=== PATIENT | male | born 1955 | race American Indian/Alaskan Native ===

== ENCOUNTER 2017-01-31 03:15 | Emergency (ER) | payer BC ==
[~2017-01-31] VITALS: Ht 182.9 cm; Wt 99.8 kg
[~2017-01-31 03:15] MED LIST: ASPI-630 PO; EMPA10TA PO; ENAL20TA PO; EZET1TAB35 PO; FISH1CAP PO; GLYB1TAB15 PO; INSU100I17 SQ; INSU100I27 SQ; LIRA0.6P2 SQ; LISI2.5T PO; METO25TA4 PO; MULT-245 PO; OMEG-113 PO
[2017-01-31 04:14] LABS: BASO % 0 % (0-3); EOS % 2 % (0-3); HEMATOCRIT 44.7 % (39.0-53.0); HEMOGLOBIN 15.2 g/dL (13.0-17.5); LYMPH % 24 % (24-48); MEAN CORPUSCULAR HEMOGLOBIN 29 pg (25-35); MEAN CORPUSCULAR HGB CONC 34 g/dL (31-37); MEAN CORPUSCULAR VOLUME 87 fL (79-100); MONO % 10 % (0-9); NEUT % 64 % (31-73); PLATELET COUNT 162 x10^3/uL (140-400); RED BLOOD COUNT 5.17 x10^6/uL (4.30-5.70); RED CELL DISTRIBUTION WIDTH 13.9 % (11.5-14.5); WHITE BLOOD COUNT 8.6 x10^3/uL (4.0-11.0)
[2017-01-31 04:26] LABS: CALCIUM 9.2 mg/dL (8.5-10.1); GFR 75.5; POTASSIUM 3.7 mmol/L (3.5-5.1)
[2017-01-31 04:32] LABS: ALBUMIN 3.8 g/dL (3.4-5.0); DIRECT BILIRUBIN 0.2 mg/dL (0.0-0.2); TOTAL BILIRUBIN 0.7 mg/dL (0.2-1.0); TOTAL PROTEIN 6.8 g/dL (6.4-8.2)
[2017-01-31] MEDS ORDERED: HYDR-2758 PO (04:47)
--- NOTE | 2017-01-31 04:48 | PHYS DOC ---
Past Medical History Past Medical History: Diabetes-Type II, High Cholesterol, Hypertension, [place] Past Surgical History: Coronary Bypass Surgery Additional Past Surgical Histo: CARDIAC STENT Alcohol Use: None Drug Use: None Adult General Chief Complaint Chief Complaint: SHOULDER INJURY HPI HPI 61-year-old [facility] With left Shoulder pain. He denies any recent injury. The pain is a sharp shooting pain worse with movement of shoulder.It is moderate none radiating and without leaving factors.He denies chest pain or shortness of breath.He does have a history of coronary or disease.He denies the pain being similar to previous MIs. Review of systemsIs negative forChest painShortness of breath, Abdominal pain, Nausea, vomiting, or diaphoresis.All review of systems is negative. Emergency Department course:61-year-old male presenting to the emergency department With left shoulder pain. Vital signs unremarkable.On examination of the patient, He is stretching his left trapezius muscle And it appears to be in a mild amount of pain. He reports this improves his pain.His skin is dry to touch. EKG obtained and not suggestive of acute coronary syndrome.Chest x-ray and left shoulder plane films are unremarkable.Troponin and other blood work is unremarkable.Patient's pain has been present for greater than six hours. Clinical presentation suggestive of musculoskeletal pain. The patient was given Muscle relaxants And oral pain medication which improved his symptoms.He was subsequently discharged home.Face to face discharge instructions given.Patient is comfortable with the plan. Review of Systems Review of Systems see above Current Medications Current Medications Current Medications Medications (Trade) Dose Ordered Sig/Italo Start Time Stop Time Status Last Admin Dose Admin Cyclobenzaprine HCl (Flexeril) 10 mg 1X ONCE 01/31/17 05:00 01/31/17 05:01 DC 01/31/17 04:55 10 MG Hydromorphone HCl (Dilaudid) 0.5 mg 1X ONCE 01/31/17 05:00 01/31/17 05:01 DC 01/31/17 04:55 0.5 MG Allergies Allergies Allergies Coded Allergies Type Severity Reaction Last Updated Verified Penicillins Allergy Intermediate 10/11/15 Yes dapagliflozin Allergy Intermediate 10/11/15 Yes Physical Exam Physical Exam Constitutional: Well developed, well nourished, no acute distress, non-toxic appearance. [] HENT: Normocephalic, atraumatic, bilateral external ears normal, oropharynx moist, no oral exudates, nose normal. [] Eyes: PERRLA, EOMI, conjunctiva normal, no discharge. [] Neck: Normal range of motion, no tenderness, supple, no stridor. [] Cardiovascular:Heart rate regular rhythm, no murmur [] Lungs & Thorax: Bilateral breath sounds clear to auscultation [] Abdomen: Bowel sounds normal, soft, no tenderness, no masses, no pulsatile masses. [] Skin: Warm, dry, no erythema, no rash. [] Back: No tenderness, no CVA tenderness. [] Extremities: No tenderness, no cyanosis, no clubbing, ROM intact, no edema. [] pain with passive ROM of the left shoulder and ttp of the left trapezium and rotator cuff muscles. L hand nvi. Neurologic: Alert and oriented X 3, normal motor function, normal sensory function, no focal deficits noted. [] Psychologic: Affect normal, judgement normal, mood normal. [] Current Patient Data Vital Signs Vital Signs Date Time Temp Pulse Resp B/P (MAP) Pulse Ox O2 Delivery O2 Flow Rate FiO2 01/31/17 05:00 68 13 123/71 (88) 96 Room Air 01/31/17 03:15 98.4 98.4 Lab Values Laboratory Tests Test 01/31/17 04:00 White Blood Count 8.6 x10^3/uL (4.0-11.0) Red Blood Count 5.17 x10^6/uL (4.30-5.70) Hemoglobin 15.2 g/dL (13.0-17.5) Hematocrit 44.7 % (39.0-53.0) Mean Corpuscular Volume 87 fL (79-100) Mean Corpuscular Hemoglobin 29 pg (25-35) Mean Corpuscular Hemoglobin Concent 34 g/dL (31-37) Red Cell Distribution Width 13.9 % (11.5-14.5) Platelet Count 162 x10^3/uL (140-400) Neutrophils (%) (Auto) 64 % (31-73) Lymphocytes (%) (Auto) 24 % (24-48) Monocytes (%) (Auto) 10 % (0-9) H Eosinophils (%) (Auto) 2 % (0-3) Basophils (%) (Auto) 0 % (0-3) Neutrophils # (Auto) 5.5 x10^3uL (1.8-7.7) Lymphocytes # (Auto) 2.0 x10^3/uL (1.0-4.8) Monocytes # (Auto) 0.9 x10^3/uL (0.0-1.1) Eosinophils # (Auto) 0.2 x10^3/uL (0.0-0.7) Basophils # (Auto) 0.0 x10^3/uL (0.0-0.2) Sodium Level 141 mmol/L (136-145) Potassium Level 3.7 mmol/L (3.5-5.1) Chloride Level 107 mmol/L (98-107) Carbon Dioxide Level 26 mmol/L (21-32) Anion Gap 8 (6-14) Blood Urea Nitrogen 23 mg/dL (8-26) Creatinine 1.0 mg/dL (0.7-1.3) Estimated GFR (Cockcroft-Gault) 75.5 Glucose Level 202 mg/dL (70-99) H Calcium Level 9.2 mg/dL (8.5-10.1) Total Bilirubin 0.7 mg/dL (0.2-1.0) Direct Bilirubin 0.2 mg/dL (0.0-0.2) Aspartate Amino Transferase (AST) 23 U/L (15-37) Alanine Aminotransferase (ALT) 37 U/L (16-63) Alkaline Phosphatase 64 U/L (46-116) Troponin I Quantitative < 0.017 ng/mL (0.000-0.055) Total Protein 6.8 g/dL (6.4-8.2) Albumin 3.8 g/dL (3.4-5.0) Lipase 176 U/L (73-393) Laboratory Tests 01/31/17 04:00 Laboratory Tests 01/31/17 04:00 EKG EKG [] Radiology/Procedures Radiology/Procedures [] Course & Med Decision Making Course & Med Decision Making Pertinent Labs and Imaging studies reviewed. (See chart for details) [] Dragon Disclaimer Dragon Disclaimer This electronic medical record was generated, in whole or in part, using a voice recognition dictation system. Departure Departure Impression: Primary Impression: Left shoulder pain Disposition: 01 HOME, SELF-CARE Condition: STABLE Referrals: MADAN NULL MD (PCP) Patient Instructions: Shoulder Pain, [id number] Additional Instructions: Thank you for allowing us to participate in your care today. Followup with your primary care physician in 3 days if your symptoms do not improve. Call your Primary Doctor tomorrow and inform them of your visit today. If you do not have a primary care provider you can ask for a list of our primary care providers. Return to the emergency department you have any new or concerning findings. This should be evaluated by the primary care physician and any necessary consulting services for continued management within a few days after discharge. Return to emergency room if you have any new or concerning symptoms including but not limited to fever, chills, nausea, vomiting, intractable pain, any new rashes, chest pain, shortness of air, uncontrolled bleeding, difficulty breathing, and/or vision loss. You may have been prescribed medication that can change in your level of thinking and ability to operate machinery. These medications include hydrocodone and Ativan. Also, Benadryl has been known to do this as well. Be sure to check with your pharmacist and ask if the medications you've prescribed can affect your level of consciousness. I recommend not operating heavy machinery or driving while on medication such as these. Scripts Cyclobenzaprine Hcl (CYCLOBENZAPRINE HCL) 5 Mg Tablet 1 TAB PO TID PRN Y for PAIN, #20 TAB Prov: SIRENA CHENG MD 01/31/17 Hydrocodone Bit/Acetaminophen (HYDROCODONE-APAP 5-325 ) 1 Each Tablet 1 TAB PO PRN Q8HRS Y for sev, #8 TAB 0 Refills Prov: SIRENA CHENG MD 01/31/17 SIRENA CHENG MD Jan 31, 2017 04:47
[2017-01-31] MEDS ORDERED: CYCL5TAB PO (04:50)
[2017-01-31 05:00] VITALS: BP 123/71
[2017-01-31] MEDS ORDERED: CYCLOBENZAPRINE 10 MG TABLET. PO ONE (05:00)
[2017-01-31] MEDS ORDERED: HYDROmorphone 2 MG/ML VIAL IV ONE (05:00)
--- NOTE | 2017-01-31 06:44 | EKG ---
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
--- NOTE | 2017-01-31 08:18 | RAD ---
Left shoulder, 3 views, 01/31/2017: History: Left shoulder pain No acute fracture or dislocation is identified. There is spurring along the glenoid rim and at the AC joint. There is a moderate periarticular calcification along the superior aspect of the humeral head most likely related to the rotator cuff tendons. IMPRESSION: 1. Degenerative change including calcific tendinitis involving the rotator cuff. 2. No acute bony abnormality is detected.
--- NOTE | 2017-01-31 08:20 | RAD ---
DOYLE chest, 01/31/2017: History: Chest pain Comparison is made to a study from 10/19/2015. There has been a previous median sternotomy. The heart size and pulmonary vascularity are normal. There is a calcified granuloma in the left base. No acute infiltrate is seen. There is no evidence of pleural fluid. Moderate spurring is present in the spine. IMPRESSION: No acute cardiopulmonary abnormality is detected.
== END 2017-01-31 05:20 | disposition home or self-care (01) ==
LOC: ER 03:15
DX: M25.512 Pain in left shoulder (principal); E11.9 Type 2 diabetes mellitus without complications; E78.00 Pure hypercholesterolemia, unspecified; I10 Essential (primary) hypertension; I25.2 Old myocardial infarction; Z95.5 Presence of coronary angioplasty implant and graft; Z88.0 Allergy status to penicillin; Z88.8 Allergy status to other drugs, medicaments and biological substances
CPT/HCPCS: 36415; 71010; 73030; 80048; 80076; 83690; 84484; 85025; 93005; 96374; 99285; J1170

== ENCOUNTER 2018-06-05 05:48 | Emergency (ER) | payer BC ==
[~2018-06-05] VITALS: Ht 182.9 cm; Wt 104.3 kg
[~2018-06-05 05:48] MED LIST changes: +CYCL5TAB PO; +GLYB-102 PO; -GLYB1TAB15 PO; +HYDR-2761 PO
--- NOTE | 2018-06-05 06:22 | PHYS DOC ---
Past Medical History Past Medical History: Diabetes-Type II, High Cholesterol, Hypertension, [place] Past Surgical History: Coronary Bypass Surgery Additional Past Surgical Histo: CARDIAC STENT Alcohol Use: None Drug Use: None Adult General Chief Complaint Chief Complaint: SKIN RASH/ABSCESS HPI HPI Patient is a 62 year old male presented to the ER today for evaluation of painful lesions in his buttock area for several days. Patient denied any fever , no nausea or vomiting. Patient denied any abdominal pain. Review of Systems Review of Systems Constitutional: Denies fever or chills [] Eyes: Denies change in visual acuity, redness, or eye pain [] HENT: Denies nasal congestion or sore throat [] Respiratory: Denies cough or shortness of breath [] Cardiovascular: No additional information not addressed in HPI [] GI: Denies abdominal pain, nausea, vomiting, bloody stools or diarrhea [] : Denies dysuria or hematuria [] Musculoskeletal: Denies back pain or joint pain [] Integument:Positive for painful skin lesions in buttock area. Neurologic: Denies headache, focal weakness or sensory changes [] Endocrine: Denies polyuria or polydipsia [] All other systems were reviewed and found to be within normal limits, except as documented in this note. Current Medications Current Medications Current Medications Medications (Trade) Dose Ordered Sig/Italo Start Time Stop Time Status Last Admin Dose Admin Lidocaine HCl (Lidocaine 1% 20ml Vial) 20 ml 1X ONCE 06/05/18 07:00 06/05/18 07:01 DC 06/05/18 07:15 20 ML Morphine Sulfate (Morphine Sulfate) 4 mg 1X ONCE 06/05/18 07:00 06/05/18 07:01 DC 06/05/18 07:12 4 MG Vancomycin HCl (Vanco Per Pharmacy) 1 each PRN DAILY PRN 06/05/18 06:30 Vancomycin HCl 2 gm/Sodium Chloride 500 ml @ 250 mls/hr 1X ONCE 06/05/18 07:30 06/05/18 09:29 06/05/18 07:15 250 MLS/HR Allergies Allergies Allergies Coded Allergies Type Severity Reaction Last Updated Verified Penicillins Allergy Intermediate 10/11/15 Yes dapagliflozin Allergy Intermediate 10/11/15 Yes Physical Exam Physical Exam Constitutional: Well developed, well nourished, no acute distress, non-toxic appearance. [] HENT: Normocephalic, atraumatic, bilateral external ears normal, oropharynx moist, no oral exudates, nose normal. [] Eyes: PERRLA, EOMI, conjunctiva normal, no discharge. [] Neck: Normal range of motion, no tenderness, supple, no stridor. [] Cardiovascular:Heart rate regular rhythm, no murmur [] Lungs & Thorax: Bilateral breath sounds clear to auscultation [] Abdomen: Bowel sounds normal, soft, no tenderness, no masses, no pulsatile masses. [] Skin: There are two large tender indurated lesions on each side buttock consistent with Pilonidal abscess. Back: No tenderness, no CVA tenderness. [] Extremities: No tenderness, no cyanosis, no clubbing, ROM intact, no edema. [] Neurologic: Alert and oriented X 3, normal motor function, normal sensory function, no focal deficits noted. [] Psychologic: Affect normal, judgement normal, mood normal. [] Current Patient Data Vital Signs Vital Signs Date Time Temp Pulse Resp B/P (MAP) Pulse Ox O2 Delivery O2 Flow Rate FiO2 06/05/18 07:12 18 96 Room Air 06/05/18 06:03 98.2 70 129/73 (91) 98.2 Lab Values Laboratory Tests Test 06/05/18 06:45 White Blood Count 10.0 x10^3/uL (4.0-11.0) Red Blood Count 5.16 x10^6/uL (4.30-5.70) Hemoglobin 14.8 g/dL (13.0-17.5) Hematocrit 44.3 % (39.0-53.0) Mean Corpuscular Volume 86 fL (79-100) Mean Corpuscular Hemoglobin 29 pg (25-35) Mean Corpuscular Hemoglobin Concent 33 g/dL (31-37) Red Cell Distribution Width 14.7 % (11.5-14.5) H Platelet Count 156 x10^3/uL (140-400) Neutrophils (%) (Auto) 66 % (31-73) Lymphocytes (%) (Auto) 21 % (24-48) L Monocytes (%) (Auto) 12 % (0-9) H Eosinophils (%) (Auto) 2 % (0-3) Basophils (%) (Auto) 0 % (0-3) Neutrophils # (Auto) 6.5 x10^3uL (1.8-7.7) Lymphocytes # (Auto) 2.0 x10^3/uL (1.0-4.8) Monocytes # (Auto) 1.2 x10^3/uL (0.0-1.1) H Eosinophils # (Auto) 0.2 x10^3/uL (0.0-0.7) Basophils # (Auto) 0.0 x10^3/uL (0.0-0.2) Sodium Level 136 mmol/L (136-145) Potassium Level 3.6 mmol/L (3.5-5.1) Chloride Level 101 mmol/L (98-107) Carbon Dioxide Level 25 mmol/L (21-32) Anion Gap 10 (6-14) Blood Urea Nitrogen 16 mg/dL (8-26) Creatinine 0.8 mg/dL (0.7-1.3) Estimated GFR (Cockcroft-Gault) 97.3 BUN/Creatinine Ratio 20 (6-20) Glucose Level 140 mg/dL (70-99) H Calcium Level 9.2 mg/dL (8.5-10.1) Total Bilirubin 1.0 mg/dL (0.2-1.0) Aspartate Amino Transferase (AST) 23 U/L (15-37) Alanine Aminotransferase (ALT) 36 U/L (16-63) Alkaline Phosphatase 79 U/L (46-116) Total Protein 7.0 g/dL (6.4-8.2) Albumin 3.5 g/dL (3.4-5.0) Albumin/Globulin Ratio 1.0 (1.0-1.7) Laboratory Tests 06/05/18 06:45 Laboratory Tests 06/05/18 06:45 EKG EKG [] Radiology/Procedures Radiology/Procedures [] Course & Med Decision Making Course & Med Decision Making Pertinent Labs and Imaging studies reviewed. (See chart for details) [] Dragon Disclaimer Dragon Disclaimer This electronic medical record was generated, in whole or in part, using a voice recognition dictation system. Incision and Drainage Indication: abscess Procedure: The patient was positioned appropriately. Local anesthesia was1% lidocaine plain, total of 15 ml was injected into wound with 27 gauge needle, An incision was then made over the apex of the lesion by # 11 scapel, and large purulent material was expressed. The drainage cavity was irrigated and packed with sterile gauze. The patients tetanus status updated as needed. Patient tolerated procedure well. The patient tolerated the procedure well. Complications: none. Departure Departure Impression: Primary Impression: Cyst, pilonidal, with abscess Disposition: 01 HOME, SELF-CARE Condition: IMPROVED Referrals: MADAN NULL MD (PCP) follow up with your doctor in 2 days for packing removal. WIN VELASCO MD please follow up with this surgeon for definitive care. Patient Instructions: Pilonidal Cyst, Care After Scripts Sulfamethoxazole/Trimethoprim (BACTRIM 400-80 MG TABLET) 1 Each Tablet 1 TAB PO BID, #20 TAB Prov: CHARLEY NIÑO DO 06/05/18 Hydrocodone/Apap 5-325 (NORCO 5-325 TABLET) 1 Each Tablet 1 TAB PO PRN Q6HRS PRN for PAIN, #15 TAB 0 Refills Prov: CHARLEY NIÑO DO 06/05/18 CHARLEY NIÑO DO Jun 05, 2018 06:22
[2018-06-05] MEDS ORDERED: VANCOMYCIN PER PHARMACY MC PRN (06:30)
[2018-06-05 06:57] LABS: BASO % 0 % (0-3); EOS # 0.2 x10^3/uL (0.0-0.7); EOS % 2 % (0-3); HEMATOCRIT 44.3 % (39.0-53.0); HEMOGLOBIN 14.8 g/dL (13.0-17.5); LYMPH % 21 % (24-48); MEAN CORPUSCULAR HEMOGLOBIN 29 pg (25-35); MEAN CORPUSCULAR HGB CONC 33 g/dL (31-37); MEAN CORPUSCULAR VOLUME 86 fL (79-100); MONO # 1.2 x10^3/uL (0.0-1.1); MONO % 12 % (0-9); NEUT # 6.5 x10^3uL (1.8-7.7); NEUT % 66 % (31-73); PLATELET COUNT 156 x10^3/uL (140-400); RED BLOOD COUNT 5.16 x10^6/uL (4.30-5.70); RED CELL DISTRIBUTION WIDTH 14.7 % (11.5-14.5)
[2018-06-05] MEDS ORDERED: MORPHINE SULFATE 4 MG/ML VIAL. IV ONE (07:00)
[2018-06-05] MEDS ORDERED: LIDOCAINE 1% Multi-Dose 20 ML VIAL. INJ ONE (07:00)
[2018-06-05 07:27] LABS: CALCIUM 9.2 mg/dL (8.5-10.1); CREATININE 0.8 mg/dL (0.7-1.3); GFR 97.3; POTASSIUM 3.6 mmol/L (3.5-5.1)
[2018-06-05 07:28] LABS: ALBUMIN 3.5 g/dL (3.4-5.0)
[2018-06-05] MEDS ORDERED: VANCOMYCIN 2 GM in IV NORMAL SALINE 500ML BAG 500 ML IV ONE (07:30)
[2018-06-05] MEDS ORDERED: HYDR-3164 PO (08:03)
[2018-06-05] MEDS ORDERED: SULF1TAB23 PO (08:03)
[2018-06-05 09:12] VITALS: BP 129/60
== END 2018-06-05 09:35 | disposition home or self-care (01) ==
LOC: ER 05:48
DX: L05.01 Pilonidal cyst with abscess (principal); E11.9 Type 2 diabetes mellitus without complications; E78.00 Pure hypercholesterolemia, unspecified; I10 Essential (primary) hypertension; I25.2 Old myocardial infarction; Z88.0 Allergy status to penicillin; Z88.8 Allergy status to other drugs, medicaments and biological substances; Z95.1 Presence of aortocoronary bypass graft
CPT/HCPCS: 10080; 36415; 80053; 85025; 96365; 96366; 96375; 99284; J2270; J3370; J7040

== ENCOUNTER 2018-09-28 07:13 | Emergency (ER) | payer BC ==
[~2018-09-28] VITALS: Ht 182.9 cm; Wt 104.3 kg
[~2018-09-28 07:13] MED LIST changes: +HYDR-3164 PO; +SULF1TAB23 PO
[2018-09-28 07:31] VITALS: BP 164/84
[2018-09-28] MEDS ORDERED: DIPHTH,PERTUSS(ACELL),TET TOX 0.5 ML DISP.SYRIN. VAX IM ONE (07:45)
[2018-09-28] MEDS ORDERED: MUPI22OI2 TP (08:04)
[2018-09-28] MEDS ORDERED: CEPH-264 PO (08:04)
[2018-09-28] MEDS ORDERED: HYDR-3164 PO (08:04)
[2018-09-28] MEDS ORDERED: SULF1TAB24 PO (08:04)
--- NOTE | 2018-09-28 08:04 | PHYS DOC ---
Past Medical History Past Medical History: CAD, Diabetes-Type II, High Cholesterol, Hypertension, [place] Past Surgical History: Appendectomy, Coronary Bypass Surgery, Tonsillectomy Additional Past Surgical Histo: CARDIAC STENT Alcohol Use: Rarely Drug Use: None Adult General Chief Complaint Chief Complaint: INSECT BITE HPI HPI Patient is a 62 year old male who presents with complaining of bug bites. Patient states he had a sore area in right leg since September 07 with central wound an erythematous area that gradually getting better. Patient states he had the same lesion in bilateral sides of his neck since yesterday with tenderness and edema without drainage of pus. Patient states his blood sugar was 88 this morning and does not know about his last tetanus immunization. Review of Systems Review of Systems Constitutional: Denies fever or chills [] Eyes: Denies change in visual acuity, redness, or eye pain [] HENT: Denies nasal congestion or sore throat [] Respiratory: Denies cough or shortness of breath [] Cardiovascular: No additional information not addressed in HPI [] GI: Denies abdominal pain, nausea, vomiting, bloody stools or diarrhea [] : Denies dysuria or hematuria [] Musculoskeletal: Denies back pain or joint pain [] Integument: Reports rash or skin lesions [] Neurologic: Denies headache, focal weakness or sensory changes [] Endocrine: Denies polyuria or polydipsia [] All other systems were reviewed and found to be within normal limits, except as documented in this note. Current Medications Current Medications Current Medications Medications (Trade) Dose Ordered Sig/Italo Start Time Stop Time Status Last Admin Dose Admin Diphtheria/ Tetanus/Acell Pertussis (Boostrix) 0.5 ml ONCE ONCE 09/28/18 07:45 09/28/18 07:46 DC 09/28/18 07:52 0.5 ML Allergies Allergies Allergies Coded Allergies Type Severity Reaction Last Updated Verified Penicillins Allergy Intermediate 10/11/15 Yes dapagliflozin Allergy Intermediate 10/11/15 Yes Physical Exam Physical Exam Constitutional: Well developed, well nourished, no acute distress, non-toxic appearance. [] HENT: Normocephalic, atraumatic. Eyes: PERRLA, EOMI, conjunctiva normal, no discharge. [] Neck: Normal range of motion, no tenderness, supple, no stridor, 2 x 2 centimeters right cervical cellulitis with central puncture wound without drainage of pus, 1 x 1 cm the same lesion in the left side of neck Cardiovascular:Heart rate regular rhythm, no murmur [] Lungs & Thorax: Bilateral breath sounds clear to auscultation [] Extremities: 2 x 2 centimeters right leg erythema with central process without edema or drainage of pus, no tenderness, no cyanosis, no clubbing, ROM intact, no edema. [] Neurologic: Alert and oriented X 3, normal motor function, normal sensory function, no focal deficits noted. [] Psychologic: Affect normal, judgement normal, mood normal. [] Current Patient Data Vital Signs Vital Signs Date Time Temp Pulse Resp B/P (MAP) Pulse Ox O2 Delivery O2 Flow Rate FiO2 09/28/18 07:31 98.4 69 18 164/84 (110) 98 Room Air 98.4 EKG EKG [] Radiology/Procedures Radiology/Procedures [] Course & Med Decision Making Course & Med Decision Making I've spoken with the patient and/or caregivers. I've explained the patient's condition, diagnosis and treatment plan based on information available to me at this time. I've answered the patient's and/or caregivers questions and addressed any concerns. The patient and/or caregivers have a good understanding the patient's diagnosis, condition and treatment plan as can be expected at this point. Vital signs have been stabilized. The patient's condition is stable for discharge from the emergency department. The patient will pursue further outpatient evaluation with her primary care provider or other designated consulting physician as outlined in the discharge instructions. Patient and/or caregivers are agreeable to this plan of care and follow-up instructions have been explained in detail. The patient and/or caregivers have received these instructions in written format and expressed understanding of these discharge instructions. The patient and her caregivers are aware that if any significant change in condition or worsening of symptoms should prompt him to immediately return to this of the closest emergency depar tment. If an emergent department is not readily available I would encourage him to call 911. Tha Disclaimer Tha Disclaimer This electronic medical record was generated, in whole or in part, using a voice recognition dictation system. Departure Departure Impression: Primary Impression: Cellulitis of neck Additional Impression: Cellulitis of leg Disposition: HOME, SELF-CARE (at 0800) Condition: STABLE Referrals: MADAN NULL MD (PCP) Patient Instructions: Cellulitis Additional Instructions: Drink plenty of liquids Follow-up with your primary care physician in 3-5 days Return to ER if not getting better Scripts Mupirocin (MUPIROCIN OINTMENT) 22 Gm Oint...g. 1 ADRIAN TP TID for WOUND CARE, #1 TUBE Prov: TOSHA PALMA MD 09/28/18 Hydrocodone/Apap 5-325 (NORCO 5-325 TABLET) 1 Each Tablet 1 TAB PO PRN Q6HRS PRN for PAIN, #10 TAB 0 Refills Prov: TOSHA PALMA MD 09/28/18 Cephalexin (KEFLEX) 500 Mg Capsule 2 CAP PO Q12HR, #40 CAP Prov: TOSHA PALMA MD 09/28/18 Sulfamethoxazole/Trimethoprim (BACTRIM DS TABLET) 1 Each Tablet 1 TAB PO BID for infection, #14 TAB Prov: TOSHA PALMA MD 09/28/18 Problem Qualifiers Additional Impression: Cellulitis of leg Laterality: right Qualified Codes: L03.115 - Cellulitis of right lower limb TOSHA PALMA MD Sep 28, 2018 08:04
== END 2018-09-28 08:13 | disposition home or self-care (01) ==
LOC: ER 07:13
DX: S11.93XA Puncture wound without foreign body of unspecified part of neck, initial encounter (principal); L03.221 Cellulitis of neck; L03.115 Cellulitis of right lower limb; I25.10 Atherosclerotic heart disease of native coronary artery without angina pectoris; E11.9 Type 2 diabetes mellitus without complications; E78.00 Pure hypercholesterolemia, unspecified; I10 Essential (primary) hypertension; I25.2 Old myocardial infarction; Z90.89 Acquired absence of other organs; Z95.1 Presence of aortocoronary bypass graft; Z88.0 Allergy status to penicillin; Z88.8 Allergy status to other drugs, medicaments and biological substances; W57.XXXA Bitten or stung by nonvenomous insect and other nonvenomous arthropods, initial encounter; Y93.89 Activity, other specified; Y92.89 Other specified places as the place of occurrence of the external cause; Y99.8 Other external cause status
CPT/HCPCS: 90471; 90715; 99283

== ENCOUNTER 2020-10-16 08:38 | Emergency (ER) | payer BC ==
[~2020-10-16] VITALS: Ht 185.4 cm; Wt 120.0 kg
[~2020-10-16 08:38] MED LIST changes: +CEPH-264 PO; -ENAL20TA PO; +ENAL20TA10 PO; -GLYB-102 PO; +GLYB1TAB20 PO; -LISI2.5T PO; +LISI2.5T12 PO; +MUPI22OI2 TP; +SULF1TAB24 PO
[2020-10-16] MEDS ORDERED: IV NORMAL SALINE 1000ML BAG 500 ML IV ONE (09:30)
[2020-10-16 09:32] LABS: BASO % 0 % (0-3); EOS % 0 % (0-3); HEMOGLOBIN 16.2 g/dL (13.0-17.5); LYMPH # 0.7 x10^3/uL (1.0-4.8); LYMPH % 18 % (24-48); MEAN CORPUSCULAR HEMOGLOBIN 30 pg (25-35); MEAN CORPUSCULAR HGB CONC 35 g/dL (31-37); MEAN CORPUSCULAR VOLUME 85 fL (79-100); MONO # 0.5 x10^3/uL (0.0-1.1); MONO % 14 % (0-9); NEUT # 2.6 x10^3/uL (1.8-7.7); NEUT % 68 % (31-73); PLATELET COUNT 103 x10^3/uL (140-400); RED BLOOD COUNT 5.39 x10^6/uL (4.30-5.70); RED CELL DISTRIBUTION WIDTH 14.2 % (11.5-14.5); WHITE BLOOD COUNT 3.9 x10^3/uL (4.0-11.0)
[2020-10-16 09:43] LABS: CALCIUM 9.2 mg/dL (8.5-10.1); CREATININE 1.1 mg/dL (0.7-1.3); GFR 66.8; POTASSIUM 4.2 mmol/L (3.5-5.1)
[2020-10-16 09:49] LABS: ALBUMIN 3.4 g/dL (3.4-5.0); ALBUMIN/GLOBULIN RATIO 0.9 (1.0-1.7); TOTAL BILIRUBIN 0.7 mg/dL (0.2-1.0); TOTAL PROTEIN 7.3 g/dL (6.4-8.2)
--- NOTE | 2020-10-16 10:01 | RAD ---
XR CHEST 1V History: Reason: cough, chills / Spl. Instructions: / History: Comparison: January 31, 2017 Findings: Mild ill-defined bibasilar opacities. No pleural effusion. No pneumothorax. Unchanged heart size. Promise or median sternotomy. Impression: 1. Mild ill-defined bibasilar opacities, may represent atelectasis or developing infiltrates. If per sistent clinical concern, recommend follow-up. Electronically signed by: Jeremy Carey DO (10/16/2020 9:58 AM) [id number]
--- NOTE | 2020-10-16 11:05 | PHYS DOC ---
Past Medical History Past Medical History: CAD, Diabetes-Type II, High Cholesterol, Hypertension, [place] Past Surgical History: Coronary Bypass Surgery, Tonsillectomy Additional Past Surgical Histo: CARDIAC STENT Smoking Status: Former Smoker Alcohol Use: Rarely Drug Use: None General Adult EDM: Chief Complaint: CHEST PAIN HPI: HPI: Patient is a 65 year old male with history of CABG, HTN, HLD, DM who presents with 4 days of fatigue, chills, cough, n/v, and poor appetite. Denies shortness of breath. Does have some chest discomfort only with deep coughing. He has not been vaccinated for Covid. Denies any sick contacts. Chest discomfort is not exertional or pleuritic. He does feel like he has been able to remain safe at home and keep himself adequately hydrated. Has not had any falls. Review of Systems: Review of Systems: Constitutional: + Chills, fever [] Eyes: Denies change in visual acuity. [] HENT: + nasal congestion and sore throat. [] Respiratory: + cough. No shortness of breath. [] Cardiovascular: + chest pain. NO edema. [] GI: Reports poor appetite, N/V, diarrhea.. [] : Denies dysuria. [] Musculoskeletal: Denies back pain or joint pain. [] Integument: Denies rash. [] Neurologic: Denies headache, focal weakness or sensory changes. [] Endocrine: Denies polyuria or polydipsia. [] Lymphatic: Denies swollen glands. [] Psychiatric: Denies depression or anxiety. [] Heart Score: C/O Chest Pain: N/A Risk Factors: Risk Factors: DM, Current or recent (<one month) smoker, HTN, HLP, family history of CAD, obesity. Risk Scores: Score 0 - 3: 2.5% MACE over next 6 weeks - Discharge Home Score 4 - 6: 20.3% MACE over next 6 weeks - Admit for Clinical Observation Score 7 - 10: 72.7% MACE over next 6 weeks - Early Invasive Strategies Family History: Family History: No pertinent family history Current Medications: Current Medications Medications (Trade) Dose Ordered Sig/Italo Start Time Stop Time Status Last Admin Dose Admin Sodium Chloride 500 ml @ 500 mls/hr 1X ONCE 10/16/20 09:30 10/16/20 10:29 DC 10/16/20 09:30 500 MLS/HR Allergies: Allergies: Allergies Coded Allergies Type Severity Reaction Last Updated Verified Penicillins Allergy Intermediate 10/11/15 Yes dapagliflozin Allergy Intermediate 10/11/15 Yes Physical Exam: PE: Constitutional: Ill-appearing. Mildly diaphoretic.. [] HENT: Normocephalic, atraumatic, bilateral external ears normal, oropharynx moist, no oral exudates, nose normal. [] Eyes: PERRLA, EOMI, conjunctiva normal, no discharge. [] Neck: Normal range of motion, no tenderness, supple, no stridor. [] Cardiovascular:Heart rate regular rhythm, no murmur [] Lungs & Thorax: Faint crackles bilaterally. Normal work of breathing. [] Abdomen: Bowel sounds normal, soft, no tenderness, no masses, no pulsatile masses. [] Skin: Warm, dry, no erythema, no rash. [] Back: No tenderness, no CVA tenderness. [] Extremities: No tenderness, no cyanosis, no clubbing, ROM intact, no edema. [] Neurologic: Alert and oriented X 3, normal motor function, normal sensory function, no focal deficits noted. [] Psychologic: Affect normal, judgement normal, mood normal. [] Current Patient Data: Labs: Laboratory Tests Test 10/16/20 08:50 10/16/20 08:57 White Blood Count 3.9 x10^3/uL (4.0-11.0) L Red Blood Count 5.39 x10^6/uL (4.30-5.70) Hemoglobin 16.2 g/dL (13.0-17.5) Hematocrit 46.0 % (39.0-53.0) Mean Corpuscular Volume 85 fL (79-100) Mean Corpuscular Hemoglobin 30 pg (25-35) Mean Corpuscular Hemoglobin Concent 35 g/dL (31-37) Red Cell Distribution Width 14.2 % (11.5-14.5) Platelet Count 103 x10^3/uL (140-400) L Neutrophils (%) (Auto) 68 % (31-73) Lymphocytes (%) (Auto) 18 % (24-48) L Monocytes (%) (Auto) 14 % (0-9) H Eosinophils (%) (Auto) 0 % (0-3) Basophils (%) (Auto) 0 % (0-3) Neutrophils # (Auto) 2.6 x10^3/uL (1.8-7.7) Lymphocytes # (Auto) 0.7 x10^3/uL (1.0-4.8) L Monocytes # (Auto) 0.5 x10^3/uL (0.0-1.1) Eosinophils # (Auto) 0.0 x10^3/uL (0.0-0.7) Basophils # (Auto) 0.0 x10^3/uL (0.0-0.2) Sodium Level 134 mmol/L (136-145) L Potassium Level 4.2 mmol/L (3.5-5.1) Chloride Level 98 mmol/L (98-107) Carbon Dioxide Level 23 mmol/L (21-32) Anion Gap 13 (6-14) Blood Urea Nitrogen 25 mg/dL (8-26) Creatinine 1.1 mg/dL (0.7-1.3) Estimated GFR (Cockcroft-Gault) 66.8 BUN/Creatinine Ratio 23 (6-20) H Glucose Level 272 mg/dL (70-99) H Calcium Level 9.2 mg/dL (8.5-10.1) Total Bilirubin 0.7 mg/dL (0.2-1.0) Aspartate Amino Transferase (AST) 37 U/L (15-37) Alanine Aminotransferase (ALT) 34 U/L (16-63) Alkaline Phosphatase 75 U/L (46-116) Troponin I Quantitative < 0.017 ng/mL (0.000-0.055) Total Protein 7.3 g/dL (6.4-8.2) Albumin 3.4 g/dL (3.4-5.0) Albumin/Globulin Ratio 0.9 (1.0-1.7) L SARS-CoV-2 Antigen (Rapid) Positive (NEGATIVE) *A Laboratory Tests 10/16/20 08:50 Laboratory Tests 10/16/20 08:50 Vital Signs: Vital Signs Date Time Temp Pulse Resp B/P (MAP) Pulse Ox O2 Delivery O2 Flow Rate FiO2 10/16/20 09:05 99.0 75 24 147/77 97 Room Air 99.0 EKG: EKG: Sinus rhythm. Rate 77. Left axis deviation. No acute ST changes. Interpretation limited by baseline wander in 1, 2 and 3. [] Radiology/Procedures: Radiology/Procedures: CXR [] Impression: [facility] [address] [place] [address] IMAGING REPORT Signed PATIENT: DEBRA LIMA ACCOUNT: [id number] : 1955 LOCATION: ER AGE: 65 SEX: M EXAM STATUS: PRE ER ORD. PHYSICIAN: TREVOR KAY MD REASON: cough, chills PROCEDURE: CHEST AP ONLY XR CHEST 1V History: Reason: cough, chills / Spl. Instructions: / History: Comparison: January 31, 2017 Findings: Mild ill-defined bibasilar opacities. No pleural effusion. No pneumothorax. Unchanged heart size. Prior median sternotomy. Impression: 1. Mild ill-defined bibasilar opacities, may represent atelectasis or developing infiltrates. If persistent clinical concern, recommend follow-up. Electronically signed by: Jeremy Carey DO (10/16/2020 9:58 AM) [id number] DICTATED and SIGNED BY: JEREMY CAREY DO DATE: 10/16/20 [id number] 0 Course & Med Decision Making: Course & Med Decision Making Pertinent Labs and Imaging studies reviewed. (See chart for details) Patient is 65-year-old male with history of CABG, HTN, HLD, DM who presents with 4 days of multiple complaints including cough, chills, N/V, poor appetite. On arrival is afebrile and hemodynamically stable. Satting 95+ percent on room air. His chest pain is only with cough, does not sound anginal. EKG without acute ischemic changes. Initial troponin is negative. Do not feel that he requires any other work-up for ACS as a cause of his chest pain. Covid test returns positive. CBC, CMP unremarkable. CXR with some mild infiltrates bilaterally, consistent with early COVID-19 pneumonia Vitals and O2 sats remained stable during his stay. I informed the patient of his diagnosis of Covid. He does not currently meet any criteria for hospital admission. He does feel safe returning home. I reviewed return precautions with him. Tha Disclaimer: Dragon Disclaimer: This electronic medical record was generated, in whole or in part, using a voice recognition dictation system. Departure Departure Impression: Primary Impression: COVID-19 Disposition: HOME / SELF CARE / HOMELESS Condition: STABLE Referrals: MADAN NULL MD (PCP) Additional Instructions: You tested positive for Covid. Fortunately, your vital signs and labs are stable. Please continue to monitor your symptoms closely and if you feel like you are becoming more short of breath, or unable to keep yourself hydrated, are unable to care for yourself at home please return to the emergency department immediately for reevaluation. Please self isolate as this is an infectious disease. Please stay isolated until at least 10 days from symptom onset, and at least 72 hours of no fever/chills and improving symptoms. Please follow-up with your primary care doctor. TREVOR KAY MD Oct 16, 2020 11:05
[2020-10-16 11:09] VITALS: BP 133/64
--- NOTE | 2020-10-17 02:23 | EKG ---
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
--- NOTE | 2020-10-28 11:03 | EKG ---
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
== END 2020-10-16 11:16 | disposition home or self-care (01) ==
LOC: ER 08:38
DX: U07.1 COVID-19 (principal); I25.810 Atherosclerosis of coronary artery bypass graft(s) without angina pectoris; E11.9 Type 2 diabetes mellitus without complications; E78.00 Pure hypercholesterolemia, unspecified; I10 Essential (primary) hypertension; I25.2 Old myocardial infarction; Z88.0 Allergy status to penicillin; Z88.8 Allergy status to other drugs, medicaments and biological substances
CPT/HCPCS: 36415; 71045; 80053; 84484; 85025; 87426; 93005; 96360; 99285; J7030

== ENCOUNTER 2020-12-24 06:12 | Emergency (ER) | payer BC ==
[~2020-12-24] VITALS: Ht 177.8 cm; Wt 72.7 kg
--- NOTE | 2020-12-24 06:55 | PHYS DOC ---
Past Medical History Past Medical History: CAD, Diabetes-Type II, High Cholesterol, Hypertension, [place] Past Surgical History: Coronary Bypass Surgery, Tonsillectomy Additional Past Surgical Histo: CARDIAC STENT Smoking Status: Former Smoker Alcohol Use: Rarely Drug Use: None General Adult EDM: Chief Complaint: ABDOMINAL PAIN HPI: HPI: Patient is a 65 year old male who is brought in by EMS from home for evaluation of anorexia and nausea. The patient is a very poor historian. He reports that he does not feel well. He reports that he has had some abdominal discomfort. He reports that he has an appetite and wants to eat but does not feel like actually doing so. He does report occasional vomiting. He reports some mild nausea currently. He denies any active abdominal pain at present. He denies chest pain or dyspnea. He denies fevers or chills. He admits to some memory loss, anxiety, confusion and emotional distress related to recent significant illness. In October of this year, he was diagnosed with Covid and ended up being hospitalized at the [facility] in [place] for about 30 days, and he was on the vent at that time. Ultimately, he was extubated and was able to be discharged to a [facility]. He was there for about 2 weeks until yesterday when he went to an ER in [place]. The patient is unclear about why he was sent there, and I spoke to his , Manasa, who reports that he had reportedly had some abnormal "blood test" at the [facility] when he was sent to the ER for that purpose. She reports that his ER work-up there yesterday was normal and he was discharged. The patient refused to go back to the chcf so he was discharged home here with his . His reports that his affect is not changed since being extubated and being transferred to the [facility]. He has remains anxious. He remains agitated. He remains intermittently confused with memory loss issues. She reports that he was up most of the night, anxious, reporting that he felt like he needed to call people repeatedly, and was attempting to call people in the early hours of the morning. The patient denies SI or HI. He has been set up with home health services, and he had a home health nurse visit yesterday. He has been set up with home health nursing, PT and OT. His has not yet contacted his primary care physician to discuss these issues. No reported acute injury or trauma. The patient denies headache or dizziness. He denies focal weakness. He denies syncope. He feels very frustrated with his situation. His denies that she feels unsafe or uncomfortable with at home, she just was unsure what to do with him since he seems so persistently anxious and agitated. He apparently received a medication for her and anxiety related issue at the ER yesterday, which did help calm and improve his mood at that time, reportedly. Review of Systems: Review of Systems: Constitutional: Denies fever or chills. [] Eyes: Denies change in visual acuity. [] HENT: Denies nasal congestion or sore throat. [] Respiratory: Denies cough or shortness of breath. [] Cardiovascular: Denies chest pain or edema. [] GI: He reports abdominal discomfort, nausea vomiting. Denies constipation or diarrhea, melena or hematochezia. : He reports one episode of dysuria this morning, but denies other urinary symptoms. Musculoskeletal: Denies back pain or joint pain. [] Integument: Denies rash. [] Neurologic: He denies headache, dizziness, vertigo, syncope. He does admit to generalized weakness. No new or focal weakness. Psychiatric: Admits to depression and anxiety as well as insomnia and forgetfulness. Heart Score: C/O Chest Pain: No Risk Factors: Risk Factors: DM, Current or recent (<one month) smoker, HTN, HLP, family history of CAD, obesity. Risk Scores: Score 0 - 3: 2.5% MACE over next 6 weeks - Discharge Home Score 4 - 6: 20.3% MACE over next 6 weeks - Admit for Clinical Observation Score 7 - 10: 72.7% MACE over next 6 weeks - Early Invasive Strategies Current Medications: Current Medications Medications (Trade) Dose Ordered Sig/Italo Start Time Stop Time Status Last Admin Dose Admin Ondansetron HCl (Zofran) 4 mg 1X ONCE 12/24/20 07:00 12/24/20 07:01 Sodium Chloride 1,000 ml @ 1,000 mls/hr 1X ONCE 12/24/20 07:00 12/24/20 07:59 Allergies: Allergies: Allergies Coded Allergies Type Severity Reaction Last Updated Verified Penicillins Allergy Intermediate 10/11/15 Yes dapagliflozin Allergy Intermediate 10/11/15 Yes Physical Exam: PE: Constitutional: Well developed, well nourished, awake, alert, conversant, nontoxic, no acute distress. HENT: Normocephalic, atraumatic, bilateral external ears normal, oropharynx is patent, clear, mucous membranes are dry. Eyes: PERRLA, EOMI, conjunctiva normal, sclera are clear and anicteric, no discharge. [] Neck: Normal range of motion, no tenderness, supple, trachea is midline, no meningismus. Cardiovascular:Heart rate regular rhythm, +2 radial and dorsalis pedis pulses bilaterally. Lungs & Thorax: Bilateral breath sounds clear to auscultation [] Abdomen: Abdomen is soft, nondistended, nontender to palpation, normal bowel sounds, no palpable masses, no audible bruit, no palpable pulsatile mass. Skin: Warm, dry, no erythema, no rash. [] Back: No tenderness, no CVA tenderness. [] Extremities: No tenderness, no cyanosis, no clubbing, ROM intact, no edema. [] Neurologic: Alert and oriented X 3, no facial asymmetry, speech is fluent and clear, moves all 4 extremities equally, sensation grossly intact. Psychologic: The patient is pleasant cooperative, he is anxious. He denies SI or HI symptoms. EKG: EKG: [] Radiology/Procedures: Radiology/Procedures: [] Course & Med Decision Making: Course & Med Decision Making Pertinent Labs and Imaging studies reviewed. The patient is given IV fluids. He is given potassium phosphate replacement and IV magnesium replacement. He is drinking fluids. I have discussed all of the findings, differential diagnosis and plan of care with the patient as well as his . He feels comfortable returning home, and his feels comfortable with this plan as well. He is agreeable to taking Vistaril to help with insomnia at night, as well as to possibly help with some anxiety symptoms. He is already set up with home health services. I recommend he contact his PCP to discuss these issues further as well. He expresses gratitude for his care. Strict return precautions are given. No current indication for emergent imaging or invasive exams or admission at this time. Dragon Disclaimer: Dragon Disclaimer: This electronic medical record was generated, in whole or in part, using a voice recognition dictation system. Departure Departure Impression: Primary Impression: Nausea & vomiting Qualified Codes: R11.2 - Nausea with vomiting, unspecified Additional Impressions: Dehydration Anorexia Anxiety Memory loss or impairment Hypomagnesemia Hypophosphatemia Generalized weakness Insomnia Qualified Codes: G47.00 - Insomnia, unspecified Disposition: HOME / SELF CARE / HOMELESS Condition: STABLE Referrals: MADAN NULL MD (PCP) Patient Instructions: Anxiety and Panic Attacks, Dehydration, Adult, Fatigue, Insomnia, Nausea and Vomiting Additional Instructions: Use the prescribed medication as directed. Please try to stay well-hydrated and drink plenty of fluids. Eat a bland diet. Return to the ER immediately for severe abdominal pain, vomiting blood, uncontrolled vomiting with dehydration, chest pain, shortness of breath, fever 100.4 or higher, new or changed weakness, if you are acutely injured or sustained any trauma or any other concerns. Please reach out to your primary care physician today to discuss your memory loss issues and anxiety issues. She may be willing to prescribe some medications that you can take on a regular basis to help control this. Scripts Ondansetron Hcl (ZOFRAN) 4 Mg Tablet 4 MG PO PRN TID PRN for VOMITING, #15 EA nausea/vomiting Prov: REID MORENO DO 12/24/20 Hydroxyzine Pamoate (VISTARIL) 25 Mg Capsule 1 CAP PO QHS for insomnia, #15 CAP 1 Refill Prov: REID MORENO DO 12/24/20 REID MORENO DO Dec 24, 2020 06:55
[2020-12-24] MEDS ORDERED: IV NORMAL SALINE 1000ML BAG 1,000 ML IV ONE ×2 (07:00→08:15)
[2020-12-24] MEDS ORDERED: ONDANSETRON PF 4 MG/2 ML VIAL. IVP ONE (07:00)
[2020-12-24 07:43] LABS: BASO # 0.1 x10^3/uL (0.0-0.2); BASO % 1 % (0-3); EOS # 0.3 x10^3/uL (0.0-0.7); EOS % 3 % (0-3); HEMATOCRIT 42.6 % (39.0-53.0); HEMOGLOBIN 14.2 g/dL (13.0-17.5); LYMPH % 18 % (24-48); MEAN CORPUSCULAR HEMOGLOBIN 28 pg (25-35); MEAN CORPUSCULAR HGB CONC 33 g/dL (31-37); MEAN CORPUSCULAR VOLUME 85 fL (79-100); MONO # 1.2 x10^3/uL (0.0-1.1); MONO % 11 % (0-9); NEUT # 7.5 x10^3/uL (1.8-7.7); NEUT % 68 % (31-73); PLATELET COUNT 230 x10^3/uL (140-400); RED BLOOD COUNT 5.01 x10^6/uL (4.30-5.70); RED CELL DISTRIBUTION WIDTH 16.7 % (11.5-14.5)
[2020-12-24 07:55] LABS: CALCIUM 9.7 mg/dL (8.5-10.1); CREATININE 0.9 mg/dL (0.7-1.3); GFR 84.2; POTASSIUM 3.5 mmol/L (3.5-5.1)
[2020-12-24 08:01] LABS: ALBUMIN 3.9 g/dL (3.4-5.0); ALBUMIN/GLOBULIN RATIO 1.2 (1.0-1.7); MAGNESIUM 1.4 mg/dL (1.8-2.4); PHOSPHORUS 1.4 mg/dL (2.6-4.7); TOTAL BILIRUBIN 1.4 mg/dL (0.2-1.0); TOTAL PROTEIN 7.1 g/dL (6.4-8.2)
[2020-12-24] MEDS ORDERED: MAGNESIUM SULFATE 1GM 100 ML IV ONE (08:15)
[2020-12-24] MEDS ORDERED: POTASSIUM PHOSPHATE,MONOBASIC 500 MG TABLET. PO ONE (08:15)
[2020-12-24] MEDS ORDERED: HYDR25CA PO (09:16)
[2020-12-24 10:25] VITALS: BP 183/86
[2020-12-24] MEDS ORDERED: ONDA4TAB7 PO (11:15)
== END 2020-12-24 12:12 | disposition home or self-care (01) ==
LOC: ER 06:12
DX: R11.2 Nausea with vomiting, unspecified (principal); R19.7 Diarrhea, unspecified; R63.0 Anorexia; F41.9 Anxiety disorder, unspecified; R41.3 Other amnesia; E83.42 Hypomagnesemia; E83.39 Other disorders of phosphorus metabolism; R53.1 Weakness; G47.00 Insomnia, unspecified; I25.810 Atherosclerosis of coronary artery bypass graft(s) without angina pectoris; E11.9 Type 2 diabetes mellitus without complications; E78.00 Pure hypercholesterolemia, unspecified; I10 Essential (primary) hypertension; I25.2 Old myocardial infarction; Z88.0 Allergy status to penicillin; Z88.8 Allergy status to other drugs, medicaments and biological substances
CPT/HCPCS: 36415; 80053; 82550; 83605; 83690; 83735; 84100; 85025; 87040; 96361; 96365; 96375; 99285; J2405; J3475; J7030